=== PATIENT | male | born 1965 | race Caucasian/White ===

== ENCOUNTER 2017-05-28 12:23 | Emergency (ER) | payer OTHER ==
[~2017-05-28] VITALS: Ht 180.3 cm; Wt 90.0 kg
[~2017-05-28 12:23] MED LIST: APIX5TAB PO; AZIT250T6 PO; BUSP10TA2 PO; CEPH500C PO; CITA20TA6 PO; METF-480 PO; METO-448 PO
[2017-05-28 12:29] VITALS: Ht 180.3 cm; Wt 90.0 kg
[2017-05-28] MEDS ORDERED: KETOROLAC 30 MG INJ IM STA (14:40)
[2017-05-28] MEDS ORDERED: IBUP-1542 PO (14:44)
[2017-05-28] MEDS ORDERED: NEOMYC/POLYMYX/BACIT 30 GM OINT TOP ONE (15:00)
[2017-05-28] MEDS ORDERED: DIPHTH/TET/ACEL PERTUSS (ADULT) 0.5 ML VIAL IM* ONE (15:00)
--- NOTE | 2017-05-28 15:17 | RADRPT ---
PROCEDURE: Left knee radiographs. CLINICAL INDICATION: Trauma due to a fall. Left knee pain. TECHNIQUE: Three views. Weight bearing. Frontal, lateral, and patellar view. COMPARISON: No prior studies are available for comparison. FINDINGS: There is no fracture or dislocation. The soft tissues are normal. Articular surfaces are intact. There is no lytic or blastic lesion. There is no radiopaque foreign body. IMPRESSION: 1. Normal images of the left knee. RPTAT: QQ .Mckay Canada MD, Date Time Electronically viewed and signed by .Mckay Canada MD, on 05/28/2017 15:17 .R/
[2017-05-28 16:42] VITALS: BP 128/77; PULSE 74; RESP 18
--- NOTE | 2017-05-28 18:10 | ERD ---
ER Documentation Chief Complaint Date/Time DATE: 05/28/17 TIME: 18:07 Chief Complaint HEAD PAIN/INJURY DUE TO FALL 4 DAYS AGO HPI 51-year-old man complains of left knee pain after trip and fall outside just about half an hour prior to arrival he denies head or neck injury, no loss of consciousness, no chest pain or shortness of breath. ROS All systems reviewed and are negative except as per history of present illness. Medications Home Meds Active Scripts Ibuprofen* (Ibuprofen*) 600 Mg Tablet, 600 MG PO Q8 for PAIN AND/OR INFLAMMATION , #30 TAB Prov:NO ROJO MD 05/28/17 Metformin* (Glucophage*) 850 Mg Tablet, 850 MG PO WITH BREAKFAST DINNE, #60 TAB Prov:DONITA HOLMAN MD 10/02/15 Azithromycin* (Azithromycin*) 250 Mg Tablet, 250 MG PO DAILY, #6 TAB Prov:DONITA HOLMAN MD 10/02/15 Cephalexin* (Cephalexin*) 500 Mg Capsule, 500 MG PO TID, #15 CAP Prov:DONITA HOLMAN MD 10/02/15 Reported Medications Citalopram Hydrobromide* (Citalopram Hydrobromide*) 20 Mg Tablet, 20 MG PO DAILY , #30 TAB 09/30/15 Metoprolol Tartrate* (Lopressor*) 25 Mg Tab, 25 MG PO BID, #60 TAB 09/30/15 Buspirone Hcl* (Buspirone Hcl*) 10 Mg Tab, 10 MG PO BID, TAB 09/30/15 Apixaban* (Eliquis*) 5 Mg Tablet, 5 MG PO BID, TAB 09/30/15 Allergies Allergies: Coded Allergies: No Known Allergy (Unverified , 09/30/15) PMhx/Soc Psychiatric illness, Diabetes mellitus History of Surgery: Yes (FOOT SURGERY) Hx Neurological Disorder: No Hx Cardiac Disorders: Yes (AFIB S/P ABLATION) Hx Psychiatric Problems: Yes (ANXIETY, DEPRESSION) Hx Alcohol Use: No Hx Substance Use: No Smoking Status: Never smoker FmHx Family History: No diabetes Physical Exam Vitals Vital Signs Date Time Temp Pulse Resp B/P Pulse Ox O2 Delivery O2 Flow Rate FiO2 05/28/17 16:42 74 18 128/77 96 05/28/17 12:29 98.3 92 19 131/86 95 Physical Exam GENERAL: Well-developed, well-nourished, well-hydrated, in no apparent distress , looks nontoxic in appearance HEENT: Moist mucous membranes, pink conjunctiva, no cervical spine tenderness or step-off deformities, no goiter, no jaundice or icterus, extraocular movements intact without pain. No submandibular induration, and no pharyngeal erythema NEURO: Alert and oriented 3, cranial nerves II through XII intact bilaterally, pupils equal round reactive to light, no focal deficits or facial asymmetry, sensation intact distally Strength 5/5 in upper and lower extremities bilaterally CARDIAC: Regular rate and rhythm, no murmurs rubs or gallops LUNGS: Clear bilaterally no wheezing crackles or stridor ABDOMEN: Soft nontender, no guarding, no rigidity, no rebound, no psoas sign no obturator sign. Normoactive bowel sounds SKIN: Skin abrasion to the left lower extremity, no lacerations or skin ulcerations noted EXTREMITIES: Superficial abrasion to the anterior left knee, no bony tenderness or deformity noted. PSYCH: Normal affect without agitation or irritability Results 24 hrs Current Medications Medications (Trade) Dose Ordered Sig/Janessa Route PRN Reason Start Time Stop Time Status Last Admin Dose Admin Diphtheria/ Tetanus/Acell Pertussis (Adacel) 0.5 ml ONCE ONCE IM* 05/28/17 15:00 05/28/17 15:01 DC 05/28/17 14:58 Neomycin/ Polymyxin/ Bacitracin (Neosporin Topical Oint) 1 applic ONCE ONCE TOP 05/28/17 15:00 05/28/17 15:01 DC 05/28/17 14:59 Ketorolac Tromethamine (Toradol) 30 mg ONCE STAT IM 05/28/17 14:40 05/28/17 14:41 DC 05/28/17 14:58 Procedures/MDM I administered Toradol 30 mg, Tdap 0.5 mL IM 1, and triple antibiotic ointment to the skin abrasion. X-ray left knee 3V Interpreted by me: Bones: No fracture Joints: No dislocation Foreign body: None Patient feels much better at this time, and vital signs are normal, symptoms have improved. I did give strict instructions to return to the ED if symptoms continue or worsen, patient will otherwise follow-up with primary care physician. Patient understood instructions and agreed to plan. Disclaimer: Inadvertent spelling and grammatical errors are likely due to EHR/ dictation software use and do not reflect on the overall quality of patient care. Also, please note that the electronic time recorded on this note does not necessarily reflect the actual time of the patient encounter. Departure Diagnosis: Primary Impression: Knee sprain Encounter type: initial encounter Involved ligament of knee: unspecified ligament Laterality: left Qualified Code: S83.92XA - Sprain of left knee, unspecified ligament, initial encounter Additional Impression: Abrasion Condition: Good Patient Instructions: Abrasion, Knee Sprain Referrals: AMY RIOS MD- (PCP) NO ROJO MD May 28, 2017 18:10
== END 2017-05-28 16:45 | disposition home or self-care (01) ==
LOC: E/R 12:23
DX: S83.92XA Sprain of unspecified site of left knee, initial encounter (principal); S80.212A Abrasion, left knee, initial encounter; E11.9 Type 2 diabetes mellitus without complications; W01.0XXA Fall on same level from slipping, tripping and stumbling without subsequent striking against object, initial encounter; Y92.89 Other specified places as the place of occurrence of the external cause; Z23 Encounter for immunization; Z79.84 Long term (current) use of oral hypoglycemic drugs
CPT/HCPCS: 73562; 90471; 90715; 96372; J1885; Z7502; Z7610

== ENCOUNTER 2017-06-12 15:57 | Emergency (ER) | payer OTHER ==
[~2017-06-12] VITALS: Ht 157.5 cm; Wt 88.5 kg
[~2017-06-12 15:57] MED LIST changes: +IBUP-1542 PO
[2017-06-12 16:02] VITALS: Ht 157.5 cm; Wt 88.5 kg
--- NOTE | 2017-06-12 18:35 | RADRPT ---
PROCEDURE: CT head without intravenous contrast CLINICAL INDICATION: Headache. COMPARISON: None relevant listed. TECHNIQUE: Axial CT images from skull base to vertex with coronal and sagittal reformats. DOSE: The estimated administered radiation dose was CTDI vol = 43 mGy. DLP = 885 mGy-cm. One or mor e of the following dose reduction techniques were used: automated exposure control, adjustment of th e mA and/or kV according to patient size, or use of iterative reconstruction. FINDINGS: Parenchyma: No acute hemorrhage, large territorial infarction, or mass. Mild amount of periventricul ar and subcortical white matter hypodensity, a nonspecific finding often associated with chronic azeem roangiopathy. Ventricles: Mild generalized volume with proportionate ex vacuo ventricular dilation. Extra-axial spaces: No herniation or midline shift. Retrocerebellar cyst measures up to 2.4 cm.. Paranasal sinuses: Clear. 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 Visualized orbits: Bilateral lens replacements. Vessels: No calcified atherosclerotic arterial plaque identified. Bones: Normal. Extracranial soft tissues: Normal. Additional comment: None. IMPRESSION: No acute intracranial hemorrhage. RPTAT: [facility] Physician Bonita Date Time Electronically viewed and signed by Physician Bonita on 06/12/2017 18:35 LG/
--- NOTE | 2017-06-12 18:42 | RADRPT ---
PROCEDURE: CT Cervical Spine without intravenous contrast CLINICAL INDICATION: Headache. COMPARISON: None available. TECHNIQUE: Axial noncontrast CT images of the cervical spine with coronal and sagittal reformats. DOSE ESTIMATE: CTDI vol = 22 mGy. DLP = 451 mGy-cm. One or more of the following dose reduction te chniques were used: automated exposure control, adjustment of the mA and/or kV according to patient size, or use of iterative reconstruction. FINDINGS: Alignment: 2 mm retrolisthesis of C5 on C6. Vertebrae: No fracture, vertebral body height loss, or destructive bone lesion. Discs: Disc height loss at C4-C5, C5-C6, and C6-C7. Degenerative change: C2-C3 : No uncovertebral or facet joint arthropathy. No central canal or foraminal narrowing. C3-C4 : No uncovertebral or facet joint arthropathy. No central canal or foraminal narrowing. C4-C5 : Mild bilateral uncovertebral joint arthropathy. This is small disc osteophyte complex. Mild central canal narrowing. Moderate right and severe left foraminal narrowing. C5-C6 : The retrolisthesis uncovers the disc. Mild bilateral uncovertebral joint arthropathy. Modera te bilateral foraminal narrowing. C6-C7 : 3 mm disc osteophyte complex results in mild central canal narrowing. No foraminal narrowing . C7-T1 : No uncovertebral or facet joint arthropathy. No central canal or foraminal narrowing. Paraspinal soft tissues: Normal. No prevertebral soft tissue swelling. No posterior paraspinal soft tissue edema. Visualized posterior fossa: Normal. Visualized neck: Normal. Visualized lung apices: Normal. Additional comment: None. IMPRESSION: 1. No acute fracture. 2. 2 mm retrolisthesis of C5 on C6 which may be degenerative in nature. RPTAT: [facility] Physician Bonita Date Time Electronically viewed and signed by Physician Bonita on 06/12/2017 18:42 LG/
[2017-06-12] MEDS ORDERED: MECL12.574 PO (18:53)
[2017-06-12] MEDS ORDERED: IBUP-1542 PO (18:53)
--- NOTE | 2017-06-12 18:55 | ERD ---
ER Documentation Chief Complaint Date/Time DATE: 06/12/17 TIME: 18:54 Chief Complaint Complains of headache and dizziness x 2 weeks after a fall HPI Patient is a 51-year-old male with hypertension and diabetes who says "I am here to get my head checked". He said that he fell into a wall had first 2-3 weeks ago and has had a headache since. He has felt like his coordination was off and that he was having trouble walking. He also had some slurred speech but he says he has had slurred speech for years. He tried Motrin for pain. Upon review of old medical records this is the patient's third visit to the ER since 2016. Review of the emergency department information exchange shows visits to 2 separate emergency departments. His primary doctor is Dr. Camacho. ROS All systems reviewed and are negative except as per history of present illness. Medications Home Meds Active Scripts Meclizine Hcl* (Antivert*) 12.5 Mg Tab, 25 MG PO Q6H Y for DIZZINESS, #20 TAB Prov:HERBERTH DIAZ MD 06/12/17 Ibuprofen* (Motrin*) 600 Mg Tab, 600 MG PO Q6H Y for PAIN AND OR ELEVATED TEMP, #30 TAB Prov:HERBERTH DIAZ MD 06/12/17 Ibuprofen* (Ibuprofen*) 600 Mg Tablet, 600 MG PO Q8 for PAIN AND/OR INFLAMMATION , #30 TAB Prov:NO ROJO MD 05/28/17 Metformin* (Glucophage*) 850 Mg Tablet, 850 MG PO WITH BREAKFAST DINNE, #60 TAB Prov:DONITA HOLMAN MD 10/02/15 Azithromycin* (Azithromycin*) 250 Mg Tablet, 250 MG PO DAILY, #6 TAB Prov:DONITA HOLMAN MD 10/02/15 Cephalexin* (Cephalexin*) 500 Mg Capsule, 500 MG PO TID, #15 CAP Prov:DONITA HOLMAN MD 10/02/15 Reported Medications Citalopram Hydrobromide* (Citalopram Hydrobromide*) 20 Mg Tablet, 20 MG PO DAILY , #30 TAB 09/30/15 Metoprolol Tartrate* (Lopressor*) 25 Mg Tab, 25 MG PO BID, #60 TAB 09/30/15 Buspirone Hcl* (Buspirone Hcl*) 10 Mg Tab, 10 MG PO BID, TAB 09/30/15 Apixaban* (Eliquis*) 5 Mg Tablet, 5 MG PO BID, TAB 09/30/15 Allergies Allergies: Coded Allergies: No Known Allergy (Unverified , 09/30/15) PMhx/Soc History of Surgery: Yes (FOOT SURGERY) Anesthesia Reaction: No Hx Neurological Disorder: No Hx Cardiac Disorders: Yes (AFIB S/P ABLATION) Hx Psychiatric Problems: Yes (ANXIETY, DEPRESSION) Hx Alcohol Use: No Hx Substance Use: No Hx Tobacco Use: Yes Smoking Status: Current every day smoker FmHx Family History: diabetes Physical Exam Vitals Vital Signs Date Time Temp Pulse Resp B/P Pulse Ox O2 Delivery O2 Flow Rate FiO2 06/12/17 19:03 98.5 81 21 120/71 98 Room Air 06/12/17 18:41 84 21 112/72 98 Room Air 06/12/17 18:04 98.5 84 18 112/72 96 Room Air 06/12/17 16:02 99.0 77 20 106/82 97 Physical Exam Const: No acute distress Head: Atraumatic Eyes: Normal Conjunctiva ENT: Normal External Ears, Nose and Mouth. Neck: Full range of motion..~ No meningismus. Resp: Clear to auscultation bilaterally Cardio: Regular rate and rhythm, no murmurs Abd: Soft, non tender, non distended. Normal bowel sounds Skin: No petechiae or rashes Back: No midline or flank tenderness Ext: No cyanosis, or edema Neur: Awake and alert, cranial nerves II through XII are intact, strength is 5 out of 5 in all 4 extremities, gait is normal Psych: Normal Mood and Affect Results 24 hrs Laboratory Tests Test 06/12/17 18:10 Bedside Glucose 119mg/dL Procedures/MDM CT brain negative per radiology. Accu-Chek is normal. EKG read by me: Rate/Rhythm: Regular rate and rhythm at a normal rate Intervals: Normal Impression: No evidence of ischemia or arrhythmia Smoking Cessation Therapy: Pt. was lectured for greater than 3 minutes on the health risks of continued smoking and the benefits of cessation. Patient is a 51-year-old male with hypertension diabetes who presents with headache and dizziness. CT brain was negative for skull fracture or hemorrhage. EKG shows no signs of ischemia. Accu-Chek was normal. At this point I believe outpatient management is appropriate. I doubt stroke, hemorrhage, or mass. I doubt meningitis. The patient will be discharged but will need close follow-up with Dr. Camacho within 24-48 hours for reevaluation. The patient can return sooner for any worsening symptoms. Departure Diagnosis: Primary Impression: Dizzy Additional Impressions: Headache Headache type: unspecified Headache chronicity pattern: acute headache Intractability: not intractable Qualified Code: R51 - Acute nonintractable headache, unspecified headache type Fall Encounter type: initial encounter Qualified Code: W19.XXXA - Fall, initial encounter Condition: Fair Patient Instructions: Dizziness, Unk Cause, Fall, Mechanical Additional Instructions: Call your primary care doctor TOMORROW for an appointment during the next 1-2 days.See the doctor sooner or return here if your condition worsens before your appointment time. HERBERTH DIAZ MD Jun 12, 2017 18:55
[2017-06-12 19:03] VITALS: BP 120/71; PULSE 81; RESP 21; TEMP 98.5
== END 2017-06-12 19:13 | disposition home or self-care (01) ==
LOC: E/R 15:57
DX: R42 Dizziness and giddiness (principal); S09.90XA Unspecified injury of head, initial encounter; F17.210 Nicotine dependence, cigarettes, uncomplicated; I10 Essential (primary) hypertension; E11.9 Type 2 diabetes mellitus without complications; W18.39XA Other fall on same level, initial encounter; Y92.9 Unspecified place or not applicable; Z79.84 Long term (current) use of oral hypoglycemic drugs; Z79.01 Long term (current) use of anticoagulants
CPT/HCPCS: 70450; 72125; 82962; 93005; Z7502

== ENCOUNTER 2017-07-13 16:50 | Emergency (ER) | payer OTHER ==
[~2017-07-13] VITALS: Ht 180.3 cm; Wt 83.0 kg
[~2017-07-13 16:50] MED LIST changes: +MECL12.574 PO
[2017-07-13 17:01] VITALS: Ht 180.3 cm; Wt 83.0 kg
[2017-07-13] MEDS ORDERED: SOD CHLORIDE 0.9% 1,000 ML IV STA (19:33)
[2017-07-13] MEDS ORDERED: ASPIRIN 325 MG TAB PO STA (19:33)
--- NOTE | 2017-07-13 19:39 | ERD ---
ER Documentation Chief Complaint Chief Complaint fell 1 week ago, unsteady gait sent by pmd for mri HPI This is a 51-year-old male has a history of bipolar, ADD, diabetes. The patient is here with his sister who states that disappear from a house 2-3 days when he returned he was having a difficult time walking and had slurred speech. Patient is completely amnestic to this and does not know where he has been. The patient was seen by his primary care doctor and sent here because of slurred speech, ataxia, amnesia. The patient is a very poor historian does not recall any the events of the past several days. Says he feels weak in his left leg and slurring his speech ROS All systems reviewed and are negative except as per history of present illness. Medications Home Meds Reported Medications Benztropine Mesylate* (Benztropine Mesylate*) 1 Mg Tablet, 1 MG PO, TAB TAKE 1-2 TIMES A DAY 07/13/17 Aripiprazole* (Abilify*) 5 Mg Tab, 5 MG PO DAILY, #30 TAB 07/13/17 Propranolol Hcl* (Propranolol Hcl*) 10 Mg Tablet, 10 MG PO BID, TAB 07/13/17 Fluoxetine Hcl* (Fluoxetine Hcl*) 40 Mg Capsule, 40 MG PO DAILY, CAP 07/13/17 Metformin Hcl* (Metformin Hcl*) 500 Mg Tablet, 500 MG PO WITH BREAKFAST DINNE, # 60 TAB 07/13/17 Diltiazem Hcl* (Diltiazem XT) 180 Mg Capsule.er, 180 MG PO DAILY, #30 CAP 07/13/17 Discontinued Reported Medications Citalopram Hydrobromide* (Citalopram Hydrobromide*) 20 Mg Tablet, 20 MG PO DAILY , #30 TAB 09/30/15 Metoprolol Tartrate* (Lopressor*) 25 Mg Tab, 25 MG PO BID, #60 TAB 09/30/15 Buspirone Hcl* (Buspirone Hcl*) 10 Mg Tab, 10 MG PO BID, TAB 09/30/15 Apixaban* (Eliquis*) 5 Mg Tablet, 5 MG PO BID, TAB 09/30/15 Discontinued Scripts Meclizine Hcl* (Antivert*) 12.5 Mg Tab, 25 MG PO Q6H Y for DIZZINESS, #20 TAB Prov:HERBERTH DIAZ MD 06/12/17 Ibuprofen* (Motrin*) 600 Mg Tab, 600 MG PO Q6H Y for PAIN AND OR ELEVATED TEMP, #30 TAB Prov:HERBERTH DIAZ MD 06/12/17 Ibuprofen* (Ibuprofen*) 600 Mg Tablet, 600 MG PO Q8 for PAIN AND/OR INFLAMMATION , #30 TAB Prov:NO ROJO MD 05/28/17 Metformin* (Glucophage*) 850 Mg Tablet, 850 MG PO WITH BREAKFAST DINNE, #60 TAB Prov:DONITA HOLMAN MD 10/02/15 Azithromycin* (Azithromycin*) 250 Mg Tablet, 250 MG PO DAILY, #6 TAB Prov:DONITA HOLMAN MD 10/02/15 Cephalexin* (Cephalexin*) 500 Mg Capsule, 500 MG PO TID, #15 CAP Prov:DONITA HOLMAN MD 10/02/15 Allergies Allergies: Coded Allergies: No Known Allergy (Unverified , 07/13/17) PMhx/Soc History of Surgery: Yes (FOOT SURGERY) Anesthesia Reaction: No Hx Neurological Disorder: No Hx Cardiac Disorders: Yes (AFIB S/P ABLATION) Hx Psychiatric Problems: Yes (ANXIETY, DEPRESSION) Hx Alcohol Use: No Hx Substance Use: No Hx Tobacco Use: Yes Smoking Status: Current every day smoker FmHx Family History: No coronary disease Physical Exam Vitals Vital Signs Date Time Temp Pulse Resp B/P Pulse Ox O2 Delivery O2 Flow Rate FiO2 07/13/17 17:01 97.8 84 18 130/83 97 Physical Exam Const: Well-developed, well-nourished Head: Atraumatic, normocephalic Eyes: Normal Conjunctiva, PERRLA, EOMI, normal sclera, no nystagmus ENT: Normal External Ears, Nose and Mouth, moist mucus membranes. Neck: Full range of motion. No meningismus, no lymphadenopathy. Resp: Clear to auscultation bilaterally, no wheezing, rhonchi, rales Cardio: Regular rate and rhythm, no murmurs, S1 S2 present Abd: Soft, non tender x 4, non distended. Normal bowel sounds, no guarding or rebound, no pulsitile abdominal masses or bruits Skin: No petechiae or rashes, no ecchymosis , no maculopapular rash Back: No midline or flank tenderness Ext: No cyanosis, or edema, FROM x 4, normal inspection, neurovascularly intact x 4 Neur: Awake and alert, STR 5/5 x 4, left leg has 3 or 4 out of 5 strength, has slurred speech, sensation intact x 4 cerebellum intact, gait has a bit of a wobble/dragging of the left leg Psych: Normal Mood and Affect Result Diagram: 07/13/17194407/13/171944 Results 24 hrs Laboratory Tests Test 07/13/17 19:45 White Blood Count 8.410^3/ul Red Blood Count 4.9010^6/ul Hemoglobin 14.2g/dl Hematocrit 42.1% Mean Corpuscular Volume 85.9fl Mean Corpuscular Hemoglobin 29.0pg Mean Corpuscular Hemoglobin Concent 33.7g/dl Red Cell Distribution Width 12.1% Platelet Count 28831^3/UL Mean Platelet Volume 10.9fl Neutrophils % 66.0% Lymphocytes % 23.1% Monocytes % 7.7% Eosinophils % 2.3% Basophils % 0.5% Nucleated Red Blood Cells % 0.0/100WBC Neutrophils # 5.610^3/ul Lymphocytes # 1.910^3/ul Monocytes # 0.710^3/ul Eosinophils # 0.210^3/ul Basophils # 0.010^3/ul Nucleated Red Blood Cells # 0.010^3/ul Prothrombin Time 13.0Sec Prothrombin Time Ratio 1.0 INR International Normalized Ratio 0.98 Activated Partial Thromboplast Time 25.2Sec Sodium Level 140mmol/L Potassium Level 3.4mmol/L Chloride Level 104mmol/L Carbon Dioxide Level 26mmol/L Anion Gap 13 Blood Urea Nitrogen 19mg/dl Creatinine 0.96mg/dl Glucose Level 97mg/dl Calcium Level 9.7mg/dl Total Bilirubin 0.5mg/dl Direct Bilirubin 0.00mg/dl Indirect Bilirubin 0.5mg/dl Aspartate Amino Transf (AST/SGOT) 33IU/L Alanine Aminotransferase (ALT/SGPT) 63IU/L Alkaline Phosphatase 82IU/L Troponin I < 0.012ng/ml Total Protein 7.2g/dl Albumin 4.2g/dl Globulin 3.00g/dl Albumin/Globulin Ratio 1.40 Current Medications Medications (Trade) Dose Ordered Sig/Janessa Route PRN Reason Start Time Stop Time Status Last Admin Dose Admin Sodium Chloride (NS) 1,000 ml @ 1,000 mls/hr Q1H STAT IV 07/13/17 19:33 07/13/17 20:32 DC 07/13/17 20:03 Aspirin (Aspirin) 325 mg ONCE STAT PO 07/13/17 19:33 07/13/17 19:35 DC 07/13/17 20:03 Procedures/[facility] PROCEDURE: CT Brain without contrast. CLINICAL INDICATION: Weakness. TECHNIQUE: A CT of the brain without contrast was performed utilizing axial sections from the skull base through the vertex. The patient was scanned without intravenous contrast enhancement. Sagittal and coronal reformatted images were obtained using the data from the axial images. Total exam DLP is 720.23 mGy-cm. CTDIvol is 42.56 mGy. One or more of the following dose reduction techniques were used: Automated exposure control, adjustment of the mA and/or kV according to patient size, use of iterative reconstruction technique. COMPARISON: CT scan of the brain dated 06/12/2017. FINDINGS: There is normal beach-white matter differentiation. There is enlargement of the ventricles and subarachnoid spaces consistent with atrophy. There is decreased attenuation of the periventricular white matter consistent with microangiopathic ischemic change. There is no intracranial hemorrhage or space-occupying lesion. There are vascular calcifications consistent with atherosclerosis. There is no skull fracture or lytic lesion. IMPRESSION: 1. Atrophy. 2. Microangiopathic ischemic change. 3. Atherosclerosis. 4. No intracranial hemorrhage. 5. Otherwise unremarkable noncontrast CT scan of the brain. 6. No change from 06/12/2017. RPTAT: QQ .Mckay Canada MD, Date Time Electronically viewed and signed by .Mkcay Canada MD, on 07/13/2017 20:27 .R/ CC: GARRISON COMBS DO PROCEDURE: XR Chest. CLINICAL INDICATION: Weakness. TECHNIQUE: Single frontal view. COMPARISON: 09/30/2015. FINDINGS: There is elevation of the left hemidiaphragm and left basilar atelectasis. The lungs are otherwise clear. The heart size is normal. There is no pleural effusion. There is no pneumothorax. IMPRESSION: 1. Elevation of the left hemidiaphragm and left basilar atelectasis. 2. Otherwise unremarkable chest radiograph. 3. No change from 09/30/2015. RPTAT: QQ .Mckay Canada MD, MD Date Time Electronically viewed and signed by .Mckay Canada MD, MD on 07/13/2017 20:24 .R/ CC: GARRISON COMBS DO EKG: Rate/Rhythm: Sinus rhythm with immature supraventricular complex, left axis deviation, nonspecific intraventricular block QRS, ST, QT: NORMAL VA, QRS, QT] Impression: Abnormal EKG [facility] Dr. Crystal who is accepted. Patient likely had a CVA and is not a TPA candidate because he did not know the onset of symptoms. We will need to be admitted to the hospital for CVA workup Departure Diagnosis: Primary Impression: CVA (cerebral vascular accident) CVA mechanism: unspecified Qualified Code: I63.9 - Cerebrovascular accident (CVA), unspecified mechanism Condition: Stable GARRISON COMBS DO Jul 13, 2017 19:39
[2017-07-13] MEDS ORDERED: DILT180C94 PO (20:07)
[2017-07-13] MEDS ORDERED: METF500T4 PO (20:08)
[2017-07-13] MEDS ORDERED: FLUO40CA PO (20:08)
[2017-07-13] MEDS ORDERED: ARIP5TAB7 PO (20:09)
[2017-07-13] MEDS ORDERED: PROP10TA6 PO (20:09)
[2017-07-13] MEDS ORDERED: BENZ1TAB7 PO (20:10)
[2017-07-13 20:24] LABS: BASOPHILS % 0.5 % (0.0-2.0); EOSINOPHILS # 0.2 10^3/ul (0.0-0.5); EOSINOPHILS % 2.3 % (0.0-7.0); HEMATOCRIT 42.1 % (42.0-52.0); HEMOGLOBIN 14.2 g/dl (14.0-18.0); LYMPHOCYTES # 1.9 10^3/ul (0.8-2.9); LYMPHOCYTES % 23.1 % (15.0-51.0); MEAN CORPUSCULAR HGB CONC 33.7 g/dl (32.0-37.0); MEAN CORPUSCULAR VOLUME 85.9 fl (82.0-101.0); MEAN PLATELET VOLUME 10.9 fl (7.4-10.4); MONOCYTE # 0.7 10^3/ul (0.3-0.9); MONOCYTES % 7.7 % (0.0-11.0); NEUTROPHIL # 5.6 10^3/ul (1.6-7.5); PLATELET COUNT 283 10^3/UL (140-415); RED CELL DISTRIBUTION WIDTH 12.1 % (11.5-14.5); WHITE BLOOD COUNT 8.4 10^3/ul (4.8-10.8)
--- NOTE | 2017-07-13 20:25 | RADRPT ---
PROCEDURE: XR Chest. CLINICAL INDICATION: Weakness. TECHNIQUE: Single frontal view. COMPARISON: 09/30/2015. FINDINGS: There is elevation of the left hemidiaphragm and left basilar atelectasis. The lungs are otherwise c lear. The heart size is normal. There is no pleural effusion. There is no pneumothorax. IMPRESSION: 1. Elevation of the left hemidiaphragm and left basilar atelectasis. 2. Otherwise unremarkable chest radiograph. 3. No change from 09/30/2015. RPTAT: QQ .Mckay Canada MD, MD Date Time Electronically viewed and signed by .Mckay Canada MD, MD on 07/13/2017 20:24 .R/
[2017-07-13 20:28] LABS: INR 0.98; PARTIAL THROMBOPLASTIN TIME 25.2 Sec (25.0-35.0)
--- NOTE | 2017-07-13 20:28 | RADRPT ---
PROCEDURE: CT Brain without contrast. CLINICAL INDICATION: Weakness. TECHNIQUE: A CT of the brain without contrast was performed utilizing axial sections from the skul l base through the vertex. The patient was scanned without intravenous contrast enhancement. Sagitta l and coronal reformatted images were obtained using the data from the axial images. Total exam DLP is 720.23 mGy-cm. CTDIvol is 42.56 mGy. One or more of the following dose reduction techniques we re used: Automated exposure control, adjustment of the mA and/or kV according to patient size, use o f iterative reconstruction technique. COMPARISON: CT scan of the brain dated 06/12/2017. FINDINGS: There is normal beach-white matter differentiation. There is enlargement of the ventricles and subarachnoid spaces consistent with atrophy. There is decreased attenuation of the periventricular white matter consistent with microangiopathic ischemic change. There is no intracranial hemorrhage or space-occupying lesion. There are vascular calcifications consistent with atherosclerosis. There is no skull fracture or lytic lesion. IMPRESSION: 1. Atrophy. 2. Microangiopathic ischemic change. 3. Atherosclerosis. 4. No intracranial hemorrhage. 5. Otherwise unremarkable noncontrast CT scan of the brain. 6. No change from 06/12/2017. RPTAT: QQ .Mckay Canada MD, MD Date Time Electronically viewed and signed by .Mckay Canada MD, on 07/13/2017 20:27 .R/
[2017-07-13 20:33] LABS: ALANINE AMINOTRANSFERASE 63 IU/L (13-69); ALBUMIN 4.2 g/dl (3.3-4.9); ALKALINE PHOSPHATASE 82 IU/L (42-121); ANION GAP 13 (8-16); ASPARTATE AMINO TRANSFERASE 33 IU/L (15-46); BILIRUBIN,INDIRECT 0.5 mg/dl (0-1.1); BILIRUBIN,TOTAL 0.5 mg/dl (0.2-1.3); BLOOD UREA NITROGEN 19 mg/dl (7-20); CALCIUM 9.7 mg/dl (8.4-10.2); CARBON DIOXIDE 26 mmol/L (21-31); CHLORIDE 104 mmol/L (97-110); CREATININE 0.96 mg/dl (0.61-1.24); GLUCOSE 97 mg/dl (70-220); POTASSIUM 3.4 mmol/L (3.5-5.1); SODIUM 140 mmol/L (135-144); TOTAL PROTEIN 7.2 g/dl (6.1-8.1)
[2017-07-13 20:45] LABS: TROPONIN-I < 0.012 ng/ml (0.00-0.12)
[2017-07-13 22:24] VITALS: BP 118/71; PULSE 84; RESP 20; TEMP 97.8
== END 2017-07-13 22:31 | disposition short-term general hospital (02) ==
LOC: E/R 16:50
DX: I63.9 Cerebral infarction, unspecified (principal); F17.210 Nicotine dependence, cigarettes, uncomplicated; E11.9 Type 2 diabetes mellitus without complications; R53.1 Weakness; Z79.84 Long term (current) use of oral hypoglycemic drugs
CPT/HCPCS: 36415; 70450; 71010; 80053; 84484; 85025; 85610; 85730; 93005; J7030; Z7502; Z7610

== ENCOUNTER 2017-10-09 09:27 | Inpatient (IN) | END 2017-10-21 19:30 | disposition short-term general hospital (02) | DRG 57 ==